=== PATIENT | male | born 1960 | race Two or more races ===

== ENCOUNTER 2019-11-21 13:14 | Emergency (ER) | payer OTHER ==
[~2019-11-21] VITALS: Ht 175.3 cm; Wt 94.0 kg
[2019-11-21 13:19] VITALS: BP 139/90
--- NOTE | 2019-11-21 13:27 | NUR ---
PT HERE WITH C/O COUGH X 3 WEEKS, NON-PRODUCTIVE.
[2019-11-21] MEDS ORDERED: ACETAMINOPHEN 500 MG TABLET ONE (13:32)
--- NOTE | 2019-11-21 13:34 | NUR ---
PT MEDICATED PER ORDERS.
[2019-11-21] MEDS ORDERED: ACETAMINOPHEN 500 MG TABLET PO ONE (14:00)
[2019-11-21 14:03] LABS: BASOPHILS # (AUTO) 0.01 x10^3/uL (0-0.1); BASOPHILS % (AUTO) 0 % (0-1); EOSINOPHILS # (AUTO) 0.06 x10^3/uL (0-0.4); EOSINOPHILS % (AUTO) 1 % (1-7); LYMPHOCYTES # (AUTO) 1.45 x10^3/uL (1-3.4); LYMPHOCYTES % (AUTO) 18 % (22-44); MD NO; MEAN CORPUSCULAR HGB CONC 33.7 g/dL (33.2-36.2); MEAN CORPUSCULAR VOLUME 88.8 fL (81-97); MEAN PLATELET VOLUME 8.3 fL (7.4-10.4); MONOCYTES # (AUTO) 0.62 x10^3/uL (0.2-0.8); MONOCYTES % (AUTO) 8 % (2-9); NEUTROPHILS # (AUTO) 5.93 x10^3/uL (1.8-6.8); NEUTROPHILS % (AUTO) 74 % (42-75); PLATELET COUNT 248 x10^3/uL (130-400); RED CELL DISTRIBUTION WIDTH 12.9 % (9.4-14.8)
[2019-11-21 14:10] LABS: ANION GAP 8 mmol/L (5-15); CALCIUM 8.7 mg/dL (8.5-10.1); CHLORIDE 104 mmol/L (98-107); CREATININE 1.27 mg/dL (0.7-1.3)
--- NOTE | 2019-11-21 14:48 | NUR ---
Patient/Caregiver given discharge instructions and they have confirmed that they understand the instructions. Patient ambulatory with steady gait.
== END 2019-11-21 14:59 | disposition home or self-care (01) ==
LOC: ED 14:57
DX: J20.9 Acute bronchitis, unspecified (principal); R50.9 Fever, unspecified; Z90.49 Acquired absence of other specified parts of digestive tract
CPT/HCPCS: 36415; 71046; 80048; 83605; 84145; 85025; 87040; 99284

== ENCOUNTER 2019-11-23 16:00 | Emergency (ER) | payer OTHER ==
[~2019-11-23] VITALS: Ht 175.3 cm; Wt 91.0 kg
[2019-11-23 16:21] VITALS: BP 131/85
--- NOTE | 2019-11-23 16:22 | NUR ---
THIS IS A 59 YO M W/ C/O RUNNY NOSE AND COUGH. PT WAS SEEN 2 DAYS AGO AND DC W/ ABX. PT STATES HE FEELS LIKE HE IS GETTING BETTER BUT WAS TOLD TO RETURN IN 2 DAYS. RESP EVEN AND UNLABORED. VS STABLE. NADN. CALL LIGHT IN REACH. AWAITING EVAL BY ED PROVIDER. DENIES FURTHER NEEDS AT THIS TIME.
[2019-11-23 17:20] LABS: RAPID INFLUENZA A POSITIVE (Negative); RAPID INFLUENZA B Negative (Negative)
[2019-11-23] MEDS ORDERED: ALBUTEROL SULFATE 2.5 MG/3 ML NPPB PRN (17:30)
[2019-11-23] MEDS ORDERED: OSELTAMIVIR 75 MG CAPSULE ONE (17:57)
[2019-11-23] MEDS ORDERED: OSELTAMIVIR 75 MG CAPSULE PO ONE (18:00)
--- NOTE | 2019-11-23 18:01 | NUR ---
Patient given discharge instructions and they have confirmed that they understand the instructions. Patient ambulatory with steady gait.
== END 2019-11-23 18:02 | disposition home or self-care (01) ==
LOC: ED 17:56
DX: J10.1 Influenza due to other identified influenza virus with other respiratory manifestations (principal); M79.10 Myalgia, unspecified site; R50.81 Fever presenting with conditions classified elsewhere; Z90.49 Acquired absence of other specified parts of digestive tract
CPT/HCPCS: 71046; 87400; 99284